=== PATIENT | female | born 1970 | race Caucasian/White ===

== ENCOUNTER 2022-02-19 19:00 | Emergency (ER) | payer MEDICAID ==
[~2022-02-19] VITALS: Ht 160 cm; Wt 97.0 kg
[2022-02-19] MEDS: IBUPROFEN 600 MG TABLET PO ONE (19:42)
[2022-02-19] MEDS ORDERED: IBUP-2070 PO (20:49)
[2022-02-19 21:05] VITALS: BP 129/83
== END 2022-02-19 21:13 | disposition home or self-care (01) ==
LOC: EMS 19:00
DX: S86.812A Strain of other muscle(s) and tendon(s) at lower leg level, left leg, initial encounter (principal); I10 Essential (primary) hypertension; W01.0XXA Fall on same level from slipping, tripping and stumbling without subsequent striking against object, initial encounter; Y93.89 Activity, other specified; Y92.89 Other specified places as the place of occurrence of the external cause; Y99.8 Other external cause status
CPT/HCPCS: 29505; 99283

== ENCOUNTER 2022-09-30 17:24 | Emergency (ER) | payer MEDICAID, OTHER ==
[~2022-09-30] VITALS: Ht 160 cm; Wt 101.4 kg
[~2022-09-30 17:24] MED LIST: IBUP-1492 PO
[2022-09-30] MEDS ORDERED: MORPHINE SULFATE 4 MG/ML SYRINGE IM ONE (18:30)
[2022-09-30] MEDS ORDERED: ONDANSETRON HCL 4 MG/2 ML VIAL IM ONE (18:30)
[2022-09-30] MEDS ORDERED: KETOROLAC TROMETHAMINE 60 MG/2 ML VIAL IM ONE (18:30)
[2022-09-30] MEDS ORDERED: ONDANSETRON HCL 4 MG/2 ML VIAL IVP ONE (18:45)
[2022-09-30] MEDS ORDERED: MORPHINE SULFATE 4 MG/ML SYRINGE IVP ONE (18:45)
[2022-09-30] MEDS ORDERED: KETOROLAC TROMETHAMINE 30 MG/ML VIAL IVP ONE (18:45)
[2022-09-30] MEDS ORDERED: IBUP-1554 PO (20:32)
[2022-09-30] MEDS ORDERED: HYDR-4723 PO (20:32)
[2022-09-30 20:46] VITALS: BP 130/70
== END 2022-09-30 20:49 | disposition home or self-care (01) ==
LOC: EMS 17:38
DX: S83.92XA Sprain of unspecified site of left knee, initial encounter (principal); I10 Essential (primary) hypertension; Z98.890 Other specified postprocedural states; W01.0XXA Fall on same level from slipping, tripping and stumbling without subsequent striking against object, initial encounter; Y93.89 Activity, other specified; Y92.89 Other specified places as the place of occurrence of the external cause; Y99.8 Other external cause status
CPT/HCPCS: 99284; 96374; 29505; 96375; 72100; 73562; J1885; J2270; J2405; 29530

== ENCOUNTER 2022-12-10 16:46 | Emergency (ER) | payer OTHER ==
[~2022-12-10] VITALS: Ht 160 cm; Wt 113.6 kg
[~2022-12-10 16:46] MED LIST changes: +HYDR-4723 PO; +IBUP-1554 PO
[2022-12-10] MEDS ORDERED: METO-391 PO (16:58)
[2022-12-10] MEDS ORDERED: AMLO10TA55 PO (16:58)
[2022-12-10] MEDS ORDERED: CHOL200074 PO (16:58)
[2022-12-10] MEDS ORDERED: DULA0.75 SQ (16:58)
[2022-12-10] MEDS ORDERED: METF-1211 PO (16:58)
[2022-12-10] MEDS ORDERED: IBUPROFEN 600 MG TABLET PO ONE (19:30)
[2022-12-10] MEDS ORDERED: IBUP-1492 PO (20:04)
[2022-12-10] MEDS ORDERED: CYCL-448 PO (20:04)
[2022-12-10 21:56] VITALS: BP 124/73
== END 2022-12-10 22:07 | disposition home or self-care (01) ==
LOC: EMS 16:47
DX: S13.4XXA Sprain of ligaments of cervical spine, initial encounter (principal); S39.012A Strain of muscle, fascia and tendon of lower back, initial encounter; S76.012A Strain of muscle, fascia and tendon of left hip, initial encounter; E11.9 Type 2 diabetes mellitus without complications; I10 Essential (primary) hypertension; Z98.890 Other specified postprocedural states; V89.2XXA Person injured in unspecified motor-vehicle accident, traffic, initial encounter; Y93.89 Activity, other specified; Y92.89 Other specified places as the place of occurrence of the external cause; Y99.8 Other external cause status
CPT/HCPCS: 72125; 82962; 99284

== ENCOUNTER 2023-01-01 14:26 | Emergency (ER) | payer OTHER ==
[~2023-01-01] VITALS: Ht 160 cm; Wt 100.0 kg
[~2023-01-01 14:26] MED LIST changes: +AMLO10TA55 PO; +CHOL200074 PO; +CYCL-448 PO; +DULA0.75 SQ; -HYDR-4723 PO; -IBUP-1554 PO; +METF-1211 PO; +METO-391 PO
[2023-01-01 15:45] VITALS: BP 124/70
[2023-01-01] MEDS ORDERED: AMOX1TAB16 PO (16:59)
== END 2023-01-01 17:47 | disposition home or self-care (01) ==
LOC: EMS 14:26
DX: L08.9 Local infection of the skin and subcutaneous tissue, unspecified (principal); E11.9 Type 2 diabetes mellitus without complications; I10 Essential (primary) hypertension; Z79.82 Long term (current) use of aspirin
CPT/HCPCS: 82962; 99283